=== PATIENT | female | born 1945 | race Caucasian/White ===

== ENCOUNTER 2016-09-21 13:31 | Emergency (ER) | payer OTHER, BC ==
[~2016-09-21] VITALS: Ht 170.2 cm; Wt 79.8 kg
[2016-09-21 13:34] VITALS: BP 168/90
== END 2016-09-21 14:19 | disposition home or self-care (01) ==
LOC: ER 13:31
DX: R04.0 Epistaxis (principal); Z98.890 Other specified postprocedural states; E16.2 Hypoglycemia, unspecified

== ENCOUNTER → 2020-03-16 | Outpatient (CLI) | payer OTHER, BC | LOC: SJCVC 12:48 | PROVIDERS: ATTEND Internal Medicine Cardiovascular Disease | DX: I10 Essential (primary) hypertension (principal); R93.1 Abnormal findings on diagnostic imaging of heart and coronary circulation; E78.00 Pure hypercholesterolemia, unspecified; Z82.49 Family history of ischemic heart disease and other diseases of the circulatory system; Z79.82 Long term (current) use of aspirin; Z79.899 Other long term (current) drug therapy; Z87.891 Personal history of nicotine dependence ==

== ENCOUNTER → 2021-03-22 | Outpatient (CLI) | payer OTHER, BC | LOC: SJCVCIMAG 07:18 | PROVIDERS: ATTEND Internal Medicine Cardiovascular Disease | DX: R93.1 Abnormal findings on diagnostic imaging of heart and coronary circulation (principal); E78.5 Hyperlipidemia, unspecified; I10 Essential (primary) hypertension ==